=== PATIENT | female | born 1965 | race Caucasian/White ===

== ENCOUNTER 2017-05-10 13:13 | Inpatient (IN) | payer BC ==
[~2017-05-10] VITALS: Ht 162.6 cm; Wt 113.1 kg
[~2017-05-10 13:13] MED LIST: ACIPHEX20 MG PO; BACO TOP; EFF37 PO; EFFEXOR-XR37.5 MG PO; EFFEXOR-XR75 MG PO; HIBICLENS118 ML TOP; NEURONTIN100 MG PO; NORCO1 TA2 PO; PHENOBARBITAL30 MG PO; PRILOSEC40 MG PO; TRAZODONE HYDR100 MG PO; VIS50 PO; XANAX0.5 MG PO; XARELTO15 M1 PO; XARELTO20 M1 PO
[2017-05-10 13:46] LABS: BASOPHIL % 0.6 % (0-2)
[2017-05-10 13:59] LABS: ALBUMIN 4.2 g/dL (3.4-5.0); BILIRUBIN TOTAL 0.4 mg/dL (0.20-1.00); CALCIUM 10.1 mg/dL (8.5-10.1); CARBON DIOXIDE 22.9 mmol/L (21-32); CREATININE SERUM 1.5 mg/dL (0.6-1.0)
[2017-05-10 14:03] LABS: RED CELL DISTRIBUTION WIDTH 21.1 % (11.5-14.5)
[2017-05-10 14:05] LABS: PLATELET COUNT 510 x10^3mcL (130-400)
[2017-05-10 14:08] LABS: POTASSIUM SERUM 6.1 mmol/L (3.5-5.1)
[2017-05-10] MEDS ORDERED: COZAAR100 MG PO (14:38)
[2017-05-10] MEDS ORDERED: TOPROL XL25 MG PO (14:39)
[2017-05-10] MEDS ORDERED: LASIX20 MG PO (14:40)
[2017-05-10] MEDS ORDERED: ACIPHEX20 MG PO (14:41)
[2017-05-10] MEDS ORDERED: KLOR-CON M1010 MEQ PO (14:41)
[2017-05-10] MEDS ORDERED: NOR10T PO (14:42)
[2017-05-10] MEDS ORDERED: VENLAFAXINE HY150 MG PO (14:42)
[2017-05-10] MEDS ORDERED: KLONOPIN2 MG PO (14:43)
[2017-05-10] MEDS ORDERED: METROCREAM0.75% TOP (14:44)
[2017-05-10] MEDS ORDERED: TOBREX5 ML OP (14:45)
[2017-05-10] MEDS ORDERED: MUPIROCIN2% TP (14:45)
[2017-05-10] MEDS ORDERED: NATURAL IRON65 MG PO (14:46)
[2017-05-10 16:48] VITALS: BP 131/55
[2017-05-10 16:53] VITALS: Ht 162.6 cm; Wt 113.1 kg
[2017-05-10] MEDS ORDERED: QUALITY CHOICE PO (17:04)
[2017-05-10 17:08] LABS: MAGNESIUM 1.8 mg/dL (1.8-2.4)
[2017-05-10 17:19] LABS: T3 TOTAL 1.05 ng/mL
[2017-05-10 17:20] LABS: FREE T4 1.41 ng/dL (0.76-1.46); FREE THYROXINE INDEX 3.6 ug/dL (1.4-4.5); T4(THYROXINE) 9.2 ug/dL (4.7-13.3)
[2017-05-10 18:08] LABS: UA SPECIFIC GRAVITY <=1.005 (1.005-1.035); microscopic required? YES; urine erythrocyte 1+ (NEGATIVE)
[2017-05-10 18:16] LABS: AMPHETAMINE QUAL UR NONE DETECTED (NEG <=1000)
[2017-05-10 19:22] LABS: CHOLESTEROL 198 mg/dL (<200); HDL CHOLESTEROL 45 mg/dL (40-60); TRIGLYCERIDES 121 mg/dL (<150)
[2017-05-10 19:25] VITALS: BP 107/56
[2017-05-10 21:12] VITALS: BP 132/59
[2017-05-11 06:03] VITALS: BP 101/57
[2017-05-11 07:55] LABS: CALCIUM 9.2 mg/dL (8.5-10.1); CHLORIDE SERUM 105 mmol/L (98-107); CREATININE SERUM 0.9 mg/dL (0.6-1.0); GFR1 > 60 mL/min; GLUCOSE SERUM 96 mg/dL (74-106); POTASSIUM SERUM 4.1 mmol/L (3.5-5.1); SODIUM SERUM 142 mmol/L (136-145)
[2017-05-11 08:07] LABS: BASOPHIL % 0.3 % (0-2); PLATELET COUNT 293 x10^3mcL (130-400); RED CELL DISTRIBUTION WIDTH 21.1 % (11.5-14.5)
[2017-05-11 08:08] LABS: rbc morphology (normal/abnorm) ABNORMAL (NORMAL)
[2017-05-11 10:42] VITALS: BP 145/80
[2017-05-11] MEDS ORDERED: FER300 PO (10:50)
[2017-05-11 11:18] VITALS: BP 145/80
[2017-05-11] MEDS ORDERED: TOBREX5 ML OP (13:12)
[2017-05-11 13:59] VITALS: BP 120/64; BP 123/57
== END 2017-05-11 15:10 | disposition home or self-care (01) | DRG 205 ==
LOC: ED 13:13 → DU 15:57
PROVIDERS: Emergency Medicine; ADMIT Student in an Organized Health Care Education/Training Program
DX: M94.0 Chondrocostal junction syndrome [Tietze] (principal); N17.0 Acute kidney failure with tubular necrosis; Z68.41 Body mass index [BMI] 40.0-44.9, adult; F41.8 Other specified anxiety disorders; R73.03 Prediabetes; L71.9 Rosacea, unspecified; D50.9 Iron deficiency anemia, unspecified; K21.9 Gastro-esophageal reflux disease without esophagitis; Z98.1 Arthrodesis status; Z86.711 Personal history of pulmonary embolism; E87.5 Hyperkalemia; I11.0 Hypertensive heart disease with heart failure; I50.9 Heart failure, unspecified; E78.5 Hyperlipidemia, unspecified; F32.9 Major depressive disorder, single episode, unspecified; E66.9 Obesity, unspecified
CPT/HCPCS: 82962; 83880; 84439; J1815; J2270; J2405; J3490; J7030; Q0092; Q9967